=== PATIENT | male | born 1955 | race Caucasian/White ===

== ENCOUNTER 2024-10-11 13:23 | Day surgery (SDC) | payer MEDICARE, OTHER ==
[2024-10-10 09:40] VITALS: BMI 32.1
[~2024-10-11 13:23] MED LIST: TRANEXAMIC 1,000 MG/100ML-NACL 1,000 MG in SALINE 1 100ML.BAG IV PRN; TRANEXAMIC 1,000 MG/100ML-NACL 1,000 MG in SALINE 1 100ML.BAG IVPB PRN
[2024-10-11] MEDS: IV FLUID CONTINUATION 1,000 ML IV ONE ×2 (13:46→16:50)
[2024-10-11] MEDS: ACETAMINOPHEN TAB 500 MG TAB PO PRN (14:16)
[2024-10-11] MEDS: oxyCODONE ER 10 MG TAB.ER.12H PO PRN (14:16)
[2024-10-11] MEDS: DOCUSATE 100 MG CAP PO PRN (14:17)
[2024-10-11] MEDS: ONDANSETRON 4 MG/2 ML VIAL IVP PRN (14:18)
[2024-10-11] MEDS: KETOROLAC 15 MG/ML 1 ML VIAL IVP PRN (14:19)
[2024-10-11] MEDS: DEXAMETHASONE SOD PHOSPHATE 10 MG/ML 1 ML VIAL IV PRN (14:19)
[2024-10-11] MEDS: FAMOTIDINE 20 MG/2 ML VIAL IVP PRN (14:19)
[2024-10-11] MEDS: LACTATED RINGERS 1,000 ML IV SCH ×2 (14:20→22:47)
[2024-10-11] MEDS: MIDAZOLAM 2 MG/2 ML VIAL IV ONE (14:41)
[2024-10-11] MEDS ORDERED: SUCCINYLCHOLINE CHLORIDE 200 MG/10 ML VIAL IV ONE (16:05)
[2024-10-11] MEDS ORDERED: DEXAMETHASONE SOD PHOSPHATE 4 MG/ML 1 ML VIAL ONE (16:05)
[2024-10-11] MEDS ORDERED: TRANEXAMIC 1,000 MG/100ML-NACL PREMIX BAG ONE (16:05)
[2024-10-11] MEDS ORDERED: LIDOCAINE 1% INJ 10MG/ML (20 ML MDV) ONE (16:05)
[2024-10-11] MEDS ORDERED: fentaNYL (PF) 50 MCG/ML 2 ML AMP ONE (16:05)
[2024-10-11] MEDS ORDERED: PROPOFOL 10 MG/ML 20 ML VIAL IV ONE (16:05)
[2024-10-11] MEDS ORDERED: NEOSTIGMINE 1 MG/ML 10 ML VIAL ONE (16:05)
[2024-10-11] MEDS ORDERED: GLYCOPYRROLATE 0.2 MG/ML 2 ML VIAL ONE (16:05)
[2024-10-11] MEDS ORDERED: ROCURONIUM 10 MG/ML (5 ML VIAL) IV ONE (16:05)
[2024-10-11] MEDS ORDERED: ROPIVACAINE 5 MG/ML 30 ML VIAL ONE (16:05)
--- NOTE | 2024-10-11 16:35 | P.ANPRN ---
Procedure Note - Anesthesia - Nerve Block Performed Right Adductor Canal Single Time Out Performed: Yes Date of Procedure: 10/11/24 Procedure Start Time: 14:41 Procedure Stop Time: 14:47 Location of Patient: PreOp Indication: Acute Post-Operative Pain, Requested by Surgeon Sedation Type: Sedate with meaningful contact maintained Preparation: Sterile Prep, Sterile Dressing Position: Supine Catheter: None Needle Types: Facet Needle Gauge: 20 Ultrasound used to visualize needle placement: Yes Ultrasound used to observe medication spread: Yes Injectate: 0.5% Ropivacaine (see comment for volume) (20 ml + decadron 3 mg) Blood Aspirated: No Pain Paresthesia on Injection Noted: No Resistance on Injection: Normal Image Stored and Saved: Yes Events: Uneventful and Well Tolerated Right iPack Single Time Out Performed: Yes Date of Procedure: 10/11/24 Procedure Start Time: 14:50 Procedure Stop Time: 14:55 Location of Patient: PreOp Indication: Acute Post-Operative Pain, Requested by Surgeon Sedation Type: Sedate with meaningful contact maintained Preparation: Sterile Prep, Sterile Dressing Position: Supine Catheter: None Needle Types: Facet Needle Gauge: 20 Ultrasound used to visualize needle placement: Yes Ultrasound used to observe medication spread: Yes Injectate: 0.5% Ropivacaine (see comment for volume) (10 ml + decadron 1 mg) Blood Aspirated: No Pain Paresthesia on Injection Noted: No Resistance on Injection: Normal Image Stored and Saved: Yes Events: Uneventful and Well Tolerated
[2024-10-11] MEDS: ceFAZolin 2 GM in DEXTROSE 5% IN WATER 50 ML IVPB PRN (16:44)
[2024-10-11] MEDS: ROPIVACAINE/EPI/CLONIDINE/KET 50 ML SYRINGE MISCELLANE PRN (16:46)
[2024-10-11] MEDS ORDERED: NALOXONE 0.4 MG/ML 1 ML VIAL IV PRN (18:14)
[2024-10-11] MEDS ORDERED: MAGNESIUM HYDROXIDE 2,400 MG/30 ML CUP PO PRN (18:14)
[2024-10-11] MEDS ORDERED: bisacodyL 10 MG SUPP RECTAL PRN (18:14)
[2024-10-11] MEDS ORDERED: ONDANSETRON 4 MG/2 ML VIAL IVP PRN (18:14)
[2024-10-11] MEDS ORDERED: HYDROmorphone 0.5 MG/0.5 ML SYRINGE IVP PRN ×2 (18:14)
[2024-10-11] MEDS ORDERED: hydrOXYzine pamoate 25 MG CAP PO PRN (18:14)
[2024-10-11] MEDS ORDERED: HYDROcodone/APAP 5-325MG 1 EACH TAB PO PRN (18:14)
[2024-10-11] MEDS ORDERED: TEMAZEPAM 15 MG CAP PO PRN ×2 (18:14→22:00)
[2024-10-11] MEDS ORDERED: NA PHOS,M-B/NA PHOS,DI-BA 133 ML ENEMA RECTAL PRN (18:14)
[2024-10-11] MEDS ORDERED: diazePAM 5 MG TAB PO PRN ×2 (18:14)
--- NOTE | 2024-10-11 18:14 | P.OP ---
Date of Procedure: 10/11/24 Preoperative Diagnosis: 1. Severe varus knee arthritis 2. History of smoking Postoperative Diagnosis: Same Procedure(s) Performed: 1. Right total knee arthroplasty 2. Computer assisted musculoskeletal navigation using CT/MRI images Implants: 1. [place] [employer] PS Femur Size #4 2. [place] [employer] [place] Tibial Base Size #5 with 12 x 50 stem 3. [place] [employer] TS poly Size #9mm 4. [place] [employer] all poly patella, Size #32 Anesthesia: RERE, regional Surgeon: Raf Malin Supervisor Production #1: Jose Arango Estimated Blood Loss (ml): 100 IV fluids (ml): 800 Pathology: none sent Condition: stable Disposition: PACU Indications for Procedure: I met with the patient preoperatively in the office setting and discussed treatment of their symptomatic knee arthritis. They failed a long course of nonsurgical treatment and elected to proceed with an elective total knee replacement. I discussed the potential risks and complications at length and gave them ample time to ask questions. Risks discussed included: risks from anesthesia, superficial site surgical infection, acute and/or chronic periprosthetic joint infection, delayed wound healing, drainage, wound necrosis, instability, stiffness, stiffness requiring manipulation and/or revision surgery, damage to local blood vessels or nerves, aseptic loosening of the implants, extensor mechanism issues including disruption, patellar maltracking, avascular necrosis etc., continued or worsened knee pain, generalized dissatisfaction with surgical outcome, need for revision surgery, an inability to regain preinjury level of function, DVT, PE, other medical complications, and possibly loss of life or limb. The patient voiced their understanding that while these are the most common complications other less common complications are possible. They provided both their verbal and written consent to go forward with surgery. I specifically spent a great deal of time counseling Mr. Olmos on his history of smoking. He was strongly advised to quit smoking or delay surgery until he was able to do so. The patient states that he was so incapacitated by his arthritic pain that he wished to proceed with surgery. His knee was severely arthritic and grossly unstable. The patient was able to significantly cut back his cigarette smoking before surgery. I strongly advised him to quit in the perioperative period. The patient understands the potential ramifications of smoking after elective joint replacement surgery including infection, delayed wound healing, need for further surgery, and possibly amputation. Operative Findings: Severe tricompartmental varus knee arthritis. Due to the patient's deformity and bone quality I elected to use a posterior stabilized femoral implant with a total stabilized poly liner. I also elected to use a short cemented stem with cement restrictor on the tibia. Description of Procedure: The patient was identified in preoperative holding and the correct operative extremity was verified and marked with a marker. I reviewed the consent form with the patient at length. All of their questions were answered. The patient was given a block by anesthesia. They were then brought back to the operating room. They were transferred onto the operating room table where a general anesthetic, preoperative antibiotics, and tranexamic acid were administered by anesthesia. A tourniquet was applied to the proximal aspect of the operative extremity. The contralateral extremity was padded under the heel and secured to the operating room table with a nonsterile blue towel and tape. The ipsilateral arm was carefully draped across the patient's chest and secured with a pillow and foam. A post was applied over the lateral aspect of the ipsilateral thigh and a bolster was placed under the ipsilateral foot. I verified that the operative extremity was stable and the knee was flexed to 90. The operative extremity was then placed in a leg childs, nonsterile drapes were applied, and the extremity was prepped and draped sterilely in the standard sterile fashion. Prior to starting surgery timeout was performed identifying the correct patient, operative extremity, and procedure. The leg was then elevated, exsanguinated with an Esmarch bandage, and the tourniquet was inflated. An anterior midline incision was made sharply with a scalpel. Once I had dissected deep to the superficial fascial layer medial and lateral flaps were elevated. A medial parapatellar arthrotomy was created. Upon opening the knee joint there were diffuse arthritic changes in all 3 compartments. The anterior horn of the medial meniscus were sharply released and a medial release was performed around the posterior medial corner of the knee to facilitate retractor placement. The fat pad was excised with electrocautery. Remnants of the ACL and PCL were then excised from the notch. 4 mm pins were then placed within the incision in the medial distal femur and proximal tibia. Arrays were applied to the pins and I verified they were completely tightened. The knee was then registered with the Frugalo robot and manipulations in implant position were made to balance the knee and opitmize implant position. Using the Eben robotic saw all cuts were made in accordance with our plan. After all bony fragments had been removed the cuts were verified with the planar probe. The tibia was then subluxed forward and sized. The knee was brought into flexion and a lamina sports physiologist was placed to allow removal of the meniscal remnants both medially and laterally as well as posterior osteophytes. Local anesthetic was then infiltrated around the joint capsule. Trial implants were then placed within the knee. Range of motion and collateral ligament tension was then evaluated. Adjustments in implant size and position were then made accordingly. Once the knee was felt to be appropriately balanced the Eben pins were removed. The patella was then cut, sized, and punched. A trial patellar button was then placed. With the trial components in place, the patella tracked midline. The femur was then drilled and the trial component removed. The trial tibial component was then appropriately rotated, pinned, and prepared for the keel. All trial components were then removed from the knee. The knee was thoroughly irrigated with pulsatile lavage. Cement was prepared via vacuum mixing in a bowl on the back table. Once the cement had reached appropriate consistency, I hand pressurized cement into the tibia and gently impacted the tibial implant into place. Cement was carefully removed from around the tibial tray and the poly liner was tapped into placed, engaging the locking mechanism. The femur was then exposed and cement was hand pressurized into the cut surfaces. The femoral implant was gently tapped into place and cement was carefully removed. A wet lap sponge was used to wipe down the bearing surface of the femur and the knee was extended to further pressurize cement. With the knee extended, cement was pressurized into the cut surface of the patella and the patella button was placed and compressed with a clamp. All extruded cement was removed including from the pin sites. The knee was held in extension until the cement had fully hardened. Once the cement had hardened the knee was evaluated one final time with the final polyethylene liner in place. The knee had full extension and flexion and felt stable to varus and valgus stress throughout the arc of motion. The tourniquet was released and with the tourniquet down the patella tracked midline. All bleeders were controlled with electrocautery. The knee was then soaked for 3 minutes with a dilute Betadine soak. The knee was thoroughly irrigated using 3 L of sterile saline and pulsatile lavage. A deep drain was placed. The extensor mechanism was then reapproximated using pop off Vicryl sutures followed by a running barbed suture. The knee was then closed in layers with a 0 strata fix for the deep fascial layer, 2-0 strata fix for the superficial subcutaneous layer and Monocryl and Steri-Strips for the skin. A sterile dressing and drain sponge were applied. I verified that all instrument, sponge, and sharp counts were correct. The patient was then transferred off the operating room table, extubated, and brought to recovery having tolerated the procedure well. Jose Arango PA-C was required as a skilled cafeteria assistant due to the complexity of surgery for patient positioning, draping, exposure, retraction, closure of wound and application of dressing. PLAN: The patient can weight-bear as tolerated on the operative extremity. DVT prophylaxis with aspirin 81 mg twice a day based on preoperative risk stratification. Follow-up in the office in 2 weeks for wound check and x-rays of the knee including an AP and lateral.
[2024-10-11] MEDS: IPRATROPIUM-ALBUTEROL 3 ML NEB INHALATION STA (18:47)
--- NOTE | 2024-10-11 19:33 | XR ---
EXAMINATION TYPE: XR knee limited RT DATE OF EXAM: 10/11/2024 7:11 PM COMPARISON: None. CLINICAL INDICATION: Male, 69 years old with history of Evaluation for Postop abnormality and alignme nt, pain TECHNIQUE: 2 view(s) obtained. FINDINGS: Tibial and femoral components are in place. No acute fracture or dislocation evident. Postsurgical so ft tissue changes are present. IMPRESSION: 1. No acute fractures post right knee replacement [facility], , 10/11/2024 7:30 PM
[2024-10-11] MEDS: SENNOSIDES-DOCUSATE SODIUM 1 EACH TAB PO SCH (22:47)
[2024-10-11] MEDS: ASPIRIN 81 MG PO SCH (22:47)
[2024-10-12] MEDS: HYDROcodone/APAP 10-325MG 1 EACH TAB PO PRN (00:14)
[2024-10-12] MEDS: ceFAZolin 2 GM in DEXTROSE 5% IN WATER 50 ML IVPB SCH (00:14)
[2024-10-12] MEDS: HYDROmorphone 0.5 MG/0.5 ML SYRINGE IVP PRN (05:13)
[2024-10-12 07:24] VITALS: BP 131/74; PULSE 84; RESP 17; TEMP 97.4
--- NOTE | 2024-10-12 08:15 | P.DS ---
Providers Date of admission: 10/11/2024 Attending physician: Raf Malin Consults: 10/11/24 18:14 Consult Physician Routine Consulting Provider: Omari Edward Consult Reason/Comments: post op medical management Do you want consulting provider notified?: Yes Primary care physician: Umesh Carlos [place] [facility] Course: Patient is a very pleasant 69-year-old male who was admitted under my care yesterday after an uncomplicated total knee replacement. Surgery he was admitted to the orthopedic floor. He received 2 doses of postoperative antibiotics. He was started on DVT prophylaxis. He was seen on postoperative day #1 and was doing well. His dressing was intact. Femoral nerve function was intact. He was able to actively plantarflex and dorsiflex his ankle and his toes. Internal medicine and physical therapy were consulted. He was tentatively cleared for discharge home pending physical therapy evaluation and evaluation by internal medicine. Patient Condition at Discharge: Good Plan - Discharge Summary Discharge Rx Participant: Yes New Discharge Prescriptions: New Aspirin 81 mg PO BID #60 tab Docusate [Colace] 100 mg PO BID #60 capsule Doxycycline Monohydrate 100 mg PO BID #56 cap Diclofenac Sodium [Voltaren] 75 mg PO BID #60 tab Omeprazole 40 mg PO DAILY #30 cap No Action Atorvastatin [Lipitor] 80 mg PO DAILY lisinopriL [Zestril] 10 mg PO DAILY buPROPion HCL [buPROPion HCL Xl] 300 mg PO DAILY HYDROcodone/APAP 10-325MG [[place] 10-325] 1 tab PO Q6HR PRN PRN Reason: Pain Furosemide [Lasix] 40 mg PO DAILY Gabapentin [Neurontin] 300 mg PO TID amLODIPine [Norvasc] 5 mg PO DAILY Clopidogrel [Plavix] 75 mg PO DAILY carvediloL [Coreg] 12.5 mg PO BID allopurinoL [Zyloprim] 300 mg PO DAILY Pantoprazole [Protonix] 40 mg PO BID Spironolactone 25 mg PO DAILY Discharge Medication List Atorvastatin [Lipitor] 80 mg PO DAILY 10/10/24 [History] Clopidogrel [Plavix] 75 mg PO DAILY 10/10/24 [History] Furosemide [Lasix] 40 mg PO DAILY 10/10/24 [History] Gabapentin [Neurontin] 300 mg PO TID 10/10/24 [History] HYDROcodone/APAP 10-325MG [[place] 10-325] 1 tab PO Q6HR PRN 10/10/24 [History] Pantoprazole [Protonix] 40 mg PO BID 10/10/24 [History] Spironolactone 25 mg PO DAILY 10/10/24 [History] allopurinoL [Zyloprim] 300 mg PO DAILY 10/10/24 [History] amLODIPine [Norvasc] 5 mg PO DAILY 10/10/24 [History] buPROPion HCL [buPROPion HCL Xl] 300 mg PO DAILY 10/10/24 [History] carvediloL [Coreg] 12.5 mg PO BID 10/10/24 [History] lisinopriL [Zestril] 10 mg PO DAILY 10/10/24 [History] Aspirin 81 mg PO BID #60 tab 10/12/24 [Rx] Diclofenac Sodium [Voltaren] 75 mg PO BID #60 tab 10/12/24 [Rx] Docusate [Colace] 100 mg PO BID #60 capsule 10/12/24 [Rx] Doxycycline Monohydrate 100 mg PO BID #56 cap 10/12/24 [Rx] Omeprazole 40 mg PO DAILY #30 cap 10/12/24 [Rx] Follow up Appointment(s)/Referral(s): Raf Malin MD [Medical Doctor] - 2 Weeks Activity/Diet/Wound Care/Special Instructions: 1. Weight-bear as tolerated on your operative extremity unless instructed otherwise. Use a walker or other assistive device to ambulate. 2. Leave surgical dressing in place. If your dressing becomes saturated with blood, there is drainage, or the dressing becomes loose please contact the office. 3. It is okay to shower with your surgical dressing, but do not submerge in water (no hot tubs, bath's, swimming etc.) 4. Make sure to take her blood clot prevention medication as prescribed (aspirin, Eliquis, Xarelto, and Plavix are commonly prescribed medications for blood clot prevention) 5. While taking [place] or Percocet for pain make sure you're taking a stool softener (Colace) and drink lots of water. 6. Keep all follow-up appointments as scheduled. You will usually be seen in 1-2 weeks following surgery. 7. Please contact the office with any questions or concerns [phone] Discharge Disposition: HOME WITH HOME HEALTH SERVICES
[2024-10-12 09:16] LABS: Basophils # (A) 0.02 X 10*3/uL (0.00-0.10); Basophils % (A) 0.2 %; Eosinophils # (A) 0 X 10*3/uL (0.04-0.35); Eosinophils % (A) 0 %; HCT 36.9 % (39.6-50.0); HGB 11.9 g/dL (13.0-17.0); Lymphocytes # (A) 0.45 X 10*3/uL (0.90-5.00); Lymphocytes % (A) 3.9 %; MCHC 32.2 g/dL (32.0-37.0); MCV 96.1 FL (80.0-97.0); Mean Platelet Volume 10.7 FL (9.5-12.2); Monocytes # (A) 0.67 X 10*3/uL (0.20-1.00); Monocytes % (A) 5.7 %; NRBC Per 100 WBC 0 X 10*3/uL (0.00-0.01); Neutrophils # (A) 10.48 X 10*3/uL (1.80-7.70); Neutrophils % (A) 89.8 %; Platelet Count 177 X 10*3/uL (140-440); RBC 3.84 X 10*6/uL (4.40-5.60); RDW 13.3 % (11.5-14.5); WBC 11.67 X 10*3/uL (4.50-10.00)
[2024-10-12] MEDS ORDERED: amLODIPine 5 MG TAB PO SCH (12:45)
[2024-10-12] MEDS ORDERED: lisinopriL 10 MG TAB PO SCH (12:45)
[2024-10-12] MEDS: PANTOPRAZOLE 40 MG TABLET PO SCH (12:58)
[2024-10-12] MEDS: allopurinoL 300 MG TAB PO SCH (12:58)
[2024-10-12] MEDS: carvediloL 12.5 MG TAB PO SCH (12:58)
[2024-10-12] MEDS: CLOPIDOGREL 75 MG TAB PO SCH (12:58)
[2024-10-12] MEDS: buPROPion XL 300 MG TAB.ER.24H PO SCH (12:58)
[2024-10-12] MEDS: ATORVASTATIN 80 MG TAB PO SCH (12:58)
[2024-10-12] MEDS: SPIRONOLACTONE 25 MG TAB PO SCH (12:58)
[2024-10-12] MEDS ORDERED: GABAPENTIN 300 MG CAP PO SCH (16:00)
--- NOTE | 2024-10-12 18:51 | P.CONS ---
History of Present Illness - Reason for Consult Consult date: 10/12/24 Medical management Requesting physician: Raf Malin - Chief Complaint Right knee surgery - History of Present Illness I was informed about this consult this morning. Pleasant 69-year-old patient who follows with Dr. Gonzalez. Has undergone right total knee arthroplasty. Yesterday. Doing well. Pain controlled. No nausea vomiting tolerating his diet. No chest pain. Home medications were ordered. Patient been ambulating. Patient advised against smoking Review of systems: GEN.: None EYES: None HEENT: None NECK: None RESPIRATORY: Some baseline short of breath CARDIOVASCULAR: None GASTROINTESTINAL: None GENITOURINARY: None MUSCULOSKELETAL: Joint pains LYMPHATICS: None HEMATOLOGICAL: None PSYCHIATRY: None NEUROLOGICAL: None Social history: Lives with girlfriend Laverne. Smokes about less than half a pack a day. Smoking for close to 45 years. Physical examination: VITAL SIGNS: 97.4, 84, 17, 131 x 74, 93% room air GENERAL: BMI 32.5, sitting at the edge of bed awake comfortable. EYES: Pupils equal. Conjunctiva patty l. HEENT: External appearance of nose and ears normal, oral cavity grossly normal. NECK: JVD not raised; masses not palpable. HEART: First and second heart sounds are normal; no edema. LUNGS: Respiratory rate normal; decreased breath sound. ABDOMEN: Soft, nontender, liver spleen not palpable, no masses palpable. PSYCH: Alert and oriented x3; mood and affect patty l. MUSCULOSKELETAL:No Clubbing/cyanosis;muscles-grossly intact. OA. Dressing over incision right knee. NEUROLOGICAL: Cranial nerves grossly intact; no facial asymmetry, power and sensation grossly intact. LYMPHATICS: No lymph nodes palpable in the axilla and neck INVESTIGATIONS, reviewed in the clinical context: October 12: White: 0.6 hemoglobin 11.9 platelets 177 Assessment plan: - Right total knee arthroplasty. Aspirin for DVT prophylaxis - GERD Omeprazole - Hyperlipidemia Lipitor - Chronic gout Allopurinol - Primary osteoarthritis Pain medication as needed - Coronary artery disease about 6 stents. Plavix. Amlodipine. Coreg. Lisinopril. - Essential hypertension Zestril. Coreg. Amlodipine. - COPD in a current smoker Patient to follow-up with PCP Care was discussed with the patient. Patient to follow-up with his PCP. Past Medical History Past Medical History: CVA/TIA, GERD/Reflux, Hyperlipidemia, Hypertension, Osteoarthritis (OA) Additional Past Medical History / Comment(s): TIA-X 2-NO RESIDUAL EFFECT-LOST A LITTLE VISION IN RT EYE-RESOLVING,. LIMITED READING AND WRITING ABILITY History of Any Multi-Drug Resistant Organisms: None Reported Past Surgical History: Back Surgery, Heart Catheterization With Stent, Orthopedic Surgery Additional Past Surgical History / Comment(s): HEART CATH WITH STENTS-TOTAL 6 OVER SHORT PERIOD OF TIME, SURGERY FOR ULCER, RT KNEE SX , RT ROTATOR CUFF REPAIR, LT SHOULDER SX, BACK SX, COLONOSCOPY Past Anesthesia/Blood Transfusion Reactions: No Reported Reaction Date of Last Stent Placement:: UNKNOWN Past Psychological History: No Psychological Hx Reported Smoking Status: Current every day smoker Past Alcohol Use History: None Reported Additional Past Alcohol Use History / Comment(s): SMOKING 1/4 PPD NOW DOWN FROM 2 PPD SINCE AGE 23 Past Drug Use History: None Reported - Past Family History Mother Family Medical History: No Reported History Medications and Allergies Home Medications Medication Instructions Recorded Confirmed Type Atorvastatin [Lipitor] 80 mg PO DAILY 10/10/24 10/11/24 History Clopidogrel [Plavix] 75 mg PO DAILY 10/10/24 10/11/24 History Furosemide [Lasix] 40 mg PO DAILY 10/10/24 10/11/24 History Gabapentin [Neurontin] 300 mg PO TID 10/10/24 10/11/24 History HYDROcodone/APAP 10-325MG [[place] 1 tab PO Q6HR PRN 10/10/24 10/11/24 History 10-325] Pantoprazole [Protonix] 40 mg PO BID 10/10/24 10/11/24 History Spironolactone 25 mg PO DAILY 10/10/24 10/11/24 History allopurinoL [Zyloprim] 300 mg PO DAILY 10/10/24 10/11/24 History amLODIPine [Norvasc] 5 mg PO DAILY 10/10/24 10/11/24 History buPROPion HCL [buPROPion HCL Xl] 300 mg PO DAILY 10/10/24 10/11/24 History carvediloL [Coreg*] 12.5 mg PO BID 10/10/24 10/11/24 History lisinopriL [Zestril] 10 mg PO DAILY 10/10/24 10/11/24 History Aspirin 81 mg PO BID #60 tab 10/12/24 Rx Diclofenac Sodium [Voltaren] 75 mg PO BID #60 tab 10/12/24 Rx Docusate [Colace] 100 mg PO BID #60 capsule 10/12/24 Rx Doxycycline Monohydrate 100 mg PO BID #56 cap 10/12/24 Rx Omeprazole 40 mg PO DAILY #30 cap 10/12/24 Rx Allergies Allergy/AdvReac Type Severity Reaction Status Date / Time No Known Allergies Allergy Verified 10/11/24 13:49 Physical Exam Vitals: Vital Signs Temp Pulse Pulse Pulse Resp BP Pulse Ox 10/12/24 08:14 93 L 10/12/24 07:23 97.4 F L 84 17 131/74 96 10/12/24 00:40 97.7 F 95 22 146/72 92 L 10/11/24 22:05 93 136/69 85 L 10/11/24 21:50 94 148/79 89 L 10/11/24 21:20 93 169/74 95 10/11/24 20:55 107 H 150/78 86 L 10/11/24 20:45 103 H 87 L 10/11/24 20:15 106 H 20 152/79 95 10/11/24 19:45 108 H 20 151/78 96 10/11/24 19:30 112 H 20 170/86 96 10/11/24 19:15 115 H 20 148/91 95 10/11/24 18:57 103 H 19 137/75 96 10/11/24 18:42 97.2 F L 106 H 18 156/83 92 L 10/11/24 15:03 91 16 145/79 92 L 10/11/24 14:51 97 16 133/74 10/11/24 14:46 99 16 142/79 97 Intake and Output 10/11/24 10/12/24 10/12/24 22:59 06:59 14:59 Intake Total 1250 1200 Output Total 100 350 Balance 1150 1200 -350 Intake: IV 1250 Intake, IV Titration 1200 Amount Lactated Ringers 1,000 ml 1200 @ 100 mls/hr IV .Q10H COUNTS INCLUDE 234 BEDS AT THE [facility] Rx#:[id number] Output: Urine 350 Estimated Blood Loss 100 Other: # Voids 4 Weight 94.2 kg Results CBC & Chem 7: 10/12/24 04:56 Labs: Abnormal Lab Results - Last 24 Hours (Table) 10/12/24 Range/Units 04:56 WBC 11.67 H (4.50-10.00) X 10*3/uL RBC 3.84 L (4.40-5.60) X 10*6/uL Hgb 11.9 L (13.0-17.0) g/dL Hct 36.9 L (39.6-50.0) % Immature Gran # 0.05 H (0.00-0.04) X 10*3/uL Neutrophils # 10.48 H (1.80-7.70) X 10*3/uL Lymphocytes # 0.45 L (0.90-5.00) X 10*3/uL Eosinophils # 0 L (0.04-0.35) X 10*3/uL
[2024-10-13] MEDS ORDERED: FUROSEMIDE 40 MG TAB PO SCH (09:00)
== END 2024-10-12 13:27 | disposition home health service (06) ==
LOC: OR 13:23 → 4SSUR 18:37 → OR 10-12 13:27
PROVIDERS: ATTEND Orthopaedic Surgery
DX: M17.0 Bilateral primary osteoarthritis of knee (principal); M21.161 Varus deformity, not elsewhere classified, right knee; G89.18 Other acute postprocedural pain; I10 Essential (primary) hypertension; I25.10 Atherosclerotic heart disease of native coronary artery without angina pectoris; Z95.5 Presence of coronary angioplasty implant and graft; E78.5 Hyperlipidemia, unspecified; J44.9 Chronic obstructive pulmonary disease, unspecified; M06.9 Rheumatoid arthritis, unspecified; L40.50 Arthropathic psoriasis, unspecified; M1A.9XX0 Chronic gout, unspecified, without tophus (tophi); K21.9 Gastro-esophageal reflux disease without esophagitis; F17.210 Nicotine dependence, cigarettes, uncomplicated; Z79.02 Long term (current) use of antithrombotics/antiplatelets; Z79.82 Long term (current) use of aspirin; Z79.1 Long term (current) use of non-steroidal anti-inflammatories (NSAID); Z79.891 Long term (current) use of opiate analgesic; Z79.899 Other long term (current) drug therapy; Z86.73 Personal history of transient ischemic attack (TIA), and cerebral infarction without residual deficits; Z98.1 Arthrodesis status
CPT/HCPCS: 0055T; 27447; S2900; 64447; 64473; 85025